=== PATIENT | female | born 1970 | race Caucasian/White ===

== ENCOUNTER → 2017-05-20 | Outpatient (CLI) | payer OTHER | END | disposition home or self-care (01) | LOC: SMA 08:57 | PROVIDERS: ATTEND Family Medicine | DX: Z12.31 Encounter for screening mammogram for malignant neoplasm of breast (principal) | CPT/HCPCS: G0202 ==

== ENCOUNTER 2018-05-21 09:51 | Outpatient (CLI) | payer BC | END 2018-05-21 19:56 | disposition home or self-care (01) | LOC: SMA 09:51 | PROVIDERS: ATTEND Family Medicine | DX: Z12.31 Encounter for screening mammogram for malignant neoplasm of breast (principal) | CPT/HCPCS: 77067 ==

== ENCOUNTER 2019-08-24 06:00 | Day surgery (SDC) | payer BC ==
[~2019-08-24] VITALS: Ht 157.5 cm; Wt 129.3 kg
[2019-08-24 06:31] LABS: HCG,QUAL RESULT NEGATIVE (NEGATIVE)
[2019-08-24] MEDS ORDERED: CEFAZOLIN SOD 2 GM in D5W 50 ML IV ONE (06:45)
[2019-08-24] MEDS ORDERED: BUPIVACAINE /PF 0.5% 30 ML VIAL INJ ONE (08:35)
[2019-08-24] MEDS ORDERED: SEVOFLURANE 15 MIN GAS INH ONE (08:35)
[2019-08-24] MEDS ORDERED: SUGAMMADEX SODIUM 200 MG/2 ML VIAL IV ONE (08:35)
[2019-08-24] MEDS ORDERED: NS IRRIG SOLN 1000 ML IR ONE (08:35)
[2019-08-24] MEDS ORDERED: LR 1,000 ML IV.SOLN IV ONE (08:35)
[2019-08-24] MEDS ORDERED: fentaNYL CITRATE 250 MCG/5 ML AMP IV ONE (08:35)
[2019-08-24] MEDS ORDERED: ROCURONIUM BROMIDE 10 MG/ML (ZEMURON) IV ONE (08:35)
[2019-08-24] MEDS ORDERED: DEXTROSE 50% JECT 50 ML DISP.SYRIN IVP ONE (08:35)
[2019-08-24] MEDS ORDERED: WATER FOR IRRIGATION,STERILE 1,000 ML IRRIG.SOLN IR ONE (08:35)
[2019-08-24] MEDS ORDERED: MIDAZOLAM HCL 5 MG/5 ML VIAL IVP ONE (08:35)
[2019-08-24] MEDS ORDERED: ONDANSETRON HCL 4 MG/2 ML VIAL IVP ONE (08:35)
[2019-08-24] MEDS ORDERED: PROPOFOL 200MG/ 20ML VIAL (DIPRIVAN) IV ONE (08:35)
[2019-08-24] MEDS ORDERED: ROPIVACAINE HCL/PF 0.2% EPIDURAL 200 ML PLAST..BAG EP ONE (08:35)
[2019-08-24] MEDS ORDERED: FUROSEMIDE 20 MG/2 ML VIAL IVP ONE (08:35)
[2019-08-24] MEDS ORDERED: OXYTOCIN 10 UNIT/ML VIAL IV ONE (08:35)
[2019-08-24] MEDS ORDERED: ONDANSETRON HCL 4 MG/2 ML VIAL ONE (11:50)
[2019-08-24] MEDS ORDERED: HYDROmorphone 2 MG/ML VIAL ONE (11:50)
[2019-08-24] MEDS ORDERED: METOCLOPRAMIDE HCL 10 MG/2 ML VIAL ONE (13:13)
[2019-08-24] MEDS ORDERED: METOCLOPRAMIDE HCL 10 MG/2 ML VIAL IVP ONE (13:30)
[2019-08-24] MEDS ORDERED: HYDROcodone/ACETAMIN 5-325 MG TAB (NORCO/ VICODIN) PO ONE (13:30)
[2019-08-24] MEDS ORDERED: CEFAZOLIN 2 GM IVPB PREMIX 50 ML IV ONE (14:00)
[2019-08-24] MEDS ORDERED: CEFAZOLIN 1 GM IVPB PREMIX 50 ML IV ONE ×2 (14:30→14:36)
[2019-08-24 15:39] VITALS: BP_SYST 126
== END 2019-08-24 16:30 | disposition home or self-care (01) ==
LOC: SMU 06:00 → SDS 06:00
PROVIDERS: ATTEND Specialist
DX: N92.1 Excessive and frequent menstruation with irregular cycle (principal); D25.1 Intramural leiomyoma of uterus; D25.0 Submucous leiomyoma of uterus; N85.2 Hypertrophy of uterus; N72 Inflammatory disease of cervix uteri; N83.8 Other noninflammatory disorders of ovary, fallopian tube and broad ligament; E66.01 Morbid (severe) obesity due to excess calories; G47.33 Obstructive sleep apnea (adult) (pediatric); K21.9 Gastro-esophageal reflux disease without esophagitis; E11.9 Type 2 diabetes mellitus without complications; Z88.0 Allergy status to penicillin
CPT/HCPCS: 58554; 82962; 84703; 88307; C1727; C9399; J0690 ×2; J1170; J1940; J2250; J2405; J2590; J2704; J2765; J3010; J3490; J7060; J7120; E0190

== ENCOUNTER 2020-02-21 09:21 | Outpatient (CLI) | payer BC | END 2020-02-21 21:06 | disposition home or self-care (01) | LOC: SMA 09:21 | PROVIDERS: ATTEND Family Medicine | DX: Z12.31 Encounter for screening mammogram for malignant neoplasm of breast (principal) | CPT/HCPCS: 77067 ==

== ENCOUNTER 2021-06-15 08:16 | Outpatient (CLI) | payer BC | END 2021-06-15 21:04 | disposition home or self-care (01) | LOC: SMA 08:16 | PROVIDERS: ATTEND Family Medicine | DX: Z12.31 Encounter for screening mammogram for malignant neoplasm of breast (principal) | CPT/HCPCS: 77067 ==

== ENCOUNTER 2023-10-06 07:32 | Day surgery (SDC) | payer BC ==
[~2023-10-06] VITALS: Ht 157.5 cm; Wt 132.4 kg
[~2023-10-06 07:32] MED LIST: CLINDAMYCIN PHOS 900 MG/ D5W 50 ML PREMIX IV ONE
[2023-10-06] MEDS ORDERED: METOCLOPRAMIDE HCL 10 MG/2 ML VIAL ONE (09:45)
[2023-10-06] MEDS ORDERED: SUCCINYLCHOLINE CHLORIDE 20 MG/ML(QUELICIN) ONE (09:45)
[2023-10-06] MEDS ORDERED: ROCURONIUM BROMIDE 10 MG/ML (ZEMURON) ONE (09:45)
[2023-10-06] MEDS ORDERED: GLYCOPYRROLATE 0.2 MG/ML VIAL ONE (09:45)
[2023-10-06] MEDS ORDERED: NS IRRIG SOLN 1000 ML IR ONE (09:45)
[2023-10-06] MEDS ORDERED: ONDANSETRON HCL 4 MG/2 ML VIAL ONE (09:45)
[2023-10-06] MEDS ORDERED: NEOSTIGMINE METHYLSULFATE 1 MG/ML, 10 ML VIAL ONE (09:45)
[2023-10-06] MEDS ORDERED: MIDAZOLAM HCL/PF 2 MG/2 ML SYRINGE ONE (09:45)
[2023-10-06] MEDS ORDERED: fentaNYL CITRATE/PF 100 MCG/2 ML AMP ONE (09:45)
[2023-10-06] MEDS ORDERED: LR 1,000 ML IV.SOLN IV ONE (09:45)
[2023-10-06] MEDS ORDERED: BUPIVACAINE /PF 0.25% 30 ML VIAL INJ ONE (09:45)
[2023-10-06] MEDS ORDERED: LIDOCAINE 2%, 20 ML MDV ONE (09:45)
[2023-10-06] MEDS ORDERED: PROPOFOL 200MG/ 20ML VIAL (DIPRIVAN) IV ONE (09:45)
[2023-10-06] MEDS ORDERED: SEVOFLURANE 15 MIN GAS INH ONE (09:45)
[2023-10-06] MEDS ORDERED: ACETAMINOPHEN I.V. 1000 MG 100 ML IV ONE (10:40)
[2023-10-06] MEDS ORDERED: NALOXONE HCL 0.4 MG/ML AMP (NARCAN) IVP PRN (11:00)
[2023-10-06] MEDS ORDERED: LR 1,000 ML IV SCH (11:00)
[2023-10-06] MEDS ORDERED: HYDROmorphone 2 MG/ML VIAL IVP PRN (11:00)
[2023-10-06] MEDS ORDERED: HYDROmorphone 1 MG/ML INJ. CARTRIDGE IVP PRN (11:00)
[2023-10-06] MEDS ORDERED: ONDANSETRON HCL 4 MG/2 ML VIAL IVP PRN (11:00)
[2023-10-06] MEDS ORDERED: KETOROLAC TROMETHAMINE 30 MG VIAL IVP PRN (11:00)
[2023-10-06] MEDS ORDERED: HYDROcodone/ACETAMIN 5-325 MG TAB (NORCO/ VICODIN) PO PRN (11:15)
[2023-10-06] MEDS ORDERED: D5/0.45 NS 1,000 ML IV SCH (11:15)
[2023-10-06 12:15] VITALS: O2SAT 99
[2023-10-06 15:34] VITALS: BP_SYST 126; PULSE 71; RESP 16
== END 2023-10-06 14:35 | disposition home or self-care (01) ==
LOC: SDS 07:32 → SMU 07:32 → SDS 14:35
PROVIDERS: ATTEND Colon & Rectal Surgery
DX: R22.2 Localized swelling, mass and lump, trunk (principal); D17.1 Benign lipomatous neoplasm of skin and subcutaneous tissue of trunk; E78.5 Hyperlipidemia, unspecified; E03.9 Hypothyroidism, unspecified; E66.01 Morbid (severe) obesity due to excess calories; E11.9 Type 2 diabetes mellitus without complications; Z68.43 Body mass index [BMI] 50.0-59.9, adult; Z88.0 Allergy status to penicillin; Z91.048 Other nonmedicinal substance allergy status; Z79.899 Other long term (current) drug therapy
CPT/HCPCS: 87081; 21933; 82962; 88304; J3490 ×3; J2765; J3465; J2405; J2704; J0330; J3010; J7120; J0131; J2710; 88307; J2001